=== PATIENT | male | born 1985 | race Caucasian/White ===

== ENCOUNTER 2021-12-30 10:46 | Outpatient (CLI) | payer OTHER, SELFPAY ==
--- NOTE | 2021-12-30 10:15 | CRLHL7_ITS ---
For Patients: As a result of the Century Cures Act, medical imaging exams and procedure reports are released immediately into your electronic medical record. You may view this report before your referring provider. If you have questions, please contact your health care provider. INDICATION: Tremors. TECHNIQUE: Multiplanar multisequence noncontrast MR images acquired through the brain. COMPARISON: None. FINDINGS: The ventricles and sulci are within normal limits for patient age. No mass effect or midline shift. No parenchymal signal abnormalities. No intracranial hemorrhage or pathologic extra-axial fluid collection. No diffusion restriction to suggest acute infarction. The major arterial flow voids of the skullbase are preserved. The globes are symmetric. Small maxillary sinus retention cysts or polyps. Trace bilateral mastoid effusions. IMPRESSION: Unremarkable noncontrast MRI of the brain. Dictated by Dimitris Brown MD @ 12/30/2021 11:57:37 AM (Electronically Signed)
== END 2021-12-30 10:47 | disposition home or self-care (01) ==
LOC: MRI 10:47
PROVIDERS: PCP Family Medicine; Visit Provider Family Medicine
DX: R25.1 Tremor, unspecified (principal)
CPT/HCPCS: 70551